=== PATIENT | male | born 1985 | race Two or more races ===

== ENCOUNTER 2018-07-10 19:15 | Emergency (ER) | payer MEDICAID ==
[~2018-07-10] VITALS: Ht 167.6 cm; Wt 78.0 kg
[2018-07-10] MEDS ORDERED: SODIUM CHLORIDE 0.9% 1,000 ML IV ONE (21:00)
[2018-07-10] MEDS ORDERED: ONDANSETRON HCL 4MG/2ML INJ IV ONE (21:00)
[2018-07-10 22:04] LABS: HEMATOCRIT. 41.8 % (42.0-52.0); HEMOGLOBIN. 14.4 g/dL (14.0-18.0); MEAN CORPUSCULAR HEMOGLOBIN 28.5 pg (28.0-32.0); MEAN CORPUSCULAR VOLUME 82.6 fL (80.0-94.0); MEAN PLATELET VOLUME 8.1 fl (7.4-10.4); PLATELET 196 x1000/uL (130-400); RED BLOOD CELL COUNT 5.06 mill/uL (4.7-6.1); RED CELL DISTRIBUTION WIDTH 13.4 % (11.6-14.6)
[2018-07-10 22:05] LABS: CLARITY URINE CLEAR (CLEAR); COLOR URINE YELLOW (YELLOW); KETONES URINE NEGATIVE (NEGATIVE); LEUKOCYTE ESTERASE URINE NEGATIVE (NEGATIVE); NITRITE URINE NEGATIVE (NEGATIVE); OCCULT BLOOD URINE NEGATIVE (NEGATIVE); PH URINE 8.5 (4.5-8.0); PROTEIN URINE NEGATIVE (NEGATIVE); SPECIFIC GRAVITY URINE 1.009 (1.005-1.030); UROBILINOGEN URINE 0.2 E.U./dL (0.2-1.0)
[2018-07-10 22:09] LABS: CHLORIDE 107 mEq/L (98-107)
[2018-07-10 22:12] LABS: PROTHROMBIN TIME 9.8 sec (9.6-11.0)
[2018-07-10 22:17] LABS: PLATELET ESTIMATE NORMAL
[2018-07-10] MEDS ORDERED: MAGNESIUM/ALUMINUM HYDROXIDE/SIMETHICONE 30ML UDC PO STA (22:21)
[2018-07-10] MEDS ORDERED: FAMOTIDINE 20MG/2ML VIAL IV STA (22:21)
[2018-07-10] MEDS ORDERED: VISCOUS LIDOCAINE 2% 15 ML UDC PO STA (22:21)
[2018-07-10] MEDS ORDERED: KETOROLAC 30MG/ML VIAL IV STA (22:21)
[2018-07-10 23:15] VITALS: BP 120/62
== END 2018-07-10 23:29 | disposition home or self-care (01) ==
LOC: ER 19:15
DX: K52.9 Noninfective gastroenteritis and colitis, unspecified (principal); R74.0 Nonspecific elevation of levels of transaminase and lactic acid dehydrogenase [LDH]; R19.7 Diarrhea, unspecified; F14.10 Cocaine abuse, uncomplicated
CPT/HCPCS: 36415; 80053; 81003; 83690; 85025; 85610; 96361; 96374; 96375; 99283; J1885; J2405; J3490; J7030; Z7610

== ENCOUNTER 2018-09-26 18:37 | Emergency (ER) | payer MEDICAID ==
[~2018-09-26] VITALS: Ht 167.6 cm; Wt 82.0 kg
[2018-09-26] MEDS ORDERED: SODIUM CHLORIDE 0.9% 1,000 ML IV ONE (23:01)
[2018-09-26] MEDS ORDERED: ALBUTEROL (0.083%) 2.5MG/3ML NEB HHN STA (23:01)
[2018-09-26] MEDS ORDERED: KETOROLAC 30MG/ML VIAL IV STA (23:01)
[2018-09-27 00:54] VITALS: BP 126/78
== END 2018-09-27 02:16 | disposition home or self-care (01) ==
LOC: ER 18:37
DX: J18.9 Pneumonia, unspecified organism (principal); F14.10 Cocaine abuse, uncomplicated
CPT/HCPCS: 71045; 94640; 96374; 99283; J1885; J7030; J7611; Z7610